=== PATIENT | male | born 1980 | race Caucasian/White ===

== ENCOUNTER 2020-07-10 17:05 | Emergency (ER) | payer OTHER ==
[~2020-07-10] VITALS: Ht 182.9 cm; Wt 94.8 kg
--- NOTE | 2020-07-10 18:26 | Emergency Room Report ---
History of Present Illness General Chief Complaint: Male Urogenital Problems Source: Patient Present Illness HPI 40-year-old male with no past medical history brought in by friend with history of kidney stone onset 2 weeks ago. Patient was diagnosed with kidney stone 2 weeks ago, friend has CT scan report with them revealing evidence of 4 mm right mid ureteral stone. Patient states the pain has not resolved he is currently taking [place] and ibuprofen with no relief in symptoms. He also reports 1 episode of hematuria yesterday. Denies any fevers chills or vomiting. Patient does state he has some mild nausea. Severity, severe. Quality, sharp. Modifying factors, patient states he is taking alcohol approximately mild relief. 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 PULMONARY: No SOB, no cough, no wheezing CARDIAC: No chest pain, No palpitations, no leg swelling GI: No abdominal pain, no vomiting, no diarrhea , no melena or BRBPR : + right flank pain, no dysuria, + hematuria, no frequency, +hx of right ureteral stone MUSCULOSKELETAL: No back pain, no neck pain, no leg pain SKIN: No rash, no itching, no bruising NEUROLOGICAL: No headache, no dizziness, no paresthesia , no focal weakness. 14 point Review of Systems is otherwise negative except per HPI Physical Exam Vital Signs Date Time Temp Pulse Resp B/P (MAP) Pulse Ox O2 Delivery O2 Flow Rate FiO2 07/10/20 17:10 98.4 98 18 118/68 (85) 95 Room Air Other Organ Systems Physical Exam: GENERAL: Awake, alert, nontoxic, in no acute distress EYES: EOMI, conjunctiva without pallor HEAD/EARS/NOSE/THROAT: NCAT, oral mucosa moist, external nose and ear normal in appearance, oropharynx clear, no swelling or exudates. NECK: supple, nontender, no spasm, no JVD, no cervical adenopathy RESPIRATORY: no stridor, effort normal, no retractions, no accessory muscle use, BS clear bilaterally, no wheezes, no rhonchi, no rales, no rub. CARDIOVASCULAR: RRR, normal S1 S2, no murmur, no peripheral edema ABDOMINAL /GI: soft, nondistended, nontender, BS normal, no masses, no guarding, no Mcburneys point tenderness, no rebound, no Murpheys sign : No CVA tenderness MUSCULOSKELETAL: All extremities are non-tender, no swelling, FROM, normal strength, normal sensation, cap refill <2 seconds in all extremities EXTREMITIES: no leg swelling, pulses: 2+ brisk and normal in all distal extremities SKIN: No rash, skin is warm and dry. No cyanosis, no pallor NEUROLOGICAL: awake, alert and appropriate, oriented x3, speech normal, motor and sensation grossly intact PSYCHIATRIC: Normal mood, normal affect Medical Decision Making PA Attestation [Donta] Is my supervising Physician whom patient management has been discussed with. Diagnostic Impression: Primary Impression: Ureteral calculus, right ER Course Differential diagnosis includes septic stone, pyelonephritis, nephrolithiasis, urinary tract infection, sepsis. Patient presents today with a known 4 mm ureteral stone. Friend at bedside showed me a CT scan report revealing evidence that the 4mm stone was in the mid ureter 2 weeks ago. Patient reports he is still experiencing pain and therefore he returned to the emergency room. Currently today CBC reveals no evidence of leukocytosis, CMP reveals creatinine at 1.1. Urinalysis reveals no evidence of infection. Repeat CT scan reveals evidence of 4 mm stone now at distal ureter with mild hydroureteronephrosis and no severe evidence of obstruction. Do not suspect septic stone at this time, patient is not febrile, he is not complaining of any CVA tenderness or vomiting, do not suspect pyelonephritis. I consulted Dr. Schreiber, the urologist, and he recommend that patient is stable for outpatient care and discharge home with observation. Recommended patient follow-up with urologist in 2 weeks and phone number for this doctors office was provided. I discussed these findings at length with patient and friend at bedside and they agree with the plan. Strict ER return precautions given. Patient otherwise stable for outpatient care and discharge home. He was discharged home with a refill of his ibuprofen and [place] prescription for pain management as well as tamsulosin. No need for antibiotics at this time given do not suspect infection. I also discussed this case with my supervising physician Dr. Longo who agrees with the plan. Laboratory Tests Test 07/10/20 18:40 White Blood Count 7.4 K/UL (4.8-10.8) Red Blood Count 4.82 M/UL (4.70-6.10) Hemoglobin 14.3 G/DL (14.2-18.0) Hematocrit 39.6 % (42.0-52.0) L Mean Corpuscular Volume 82 FL (80-99) Mean Corpuscular Hemoglobin 29.6 PG (27.0-31.0) Mean Corpuscular Hemoglobin Concent 36.0 G/DL (32.0-36.0) Red Cell Distribution Width 12.1 % (11.6-14.8) Platelet Count 240 K/UL (150-450) Mean Platelet Volume 6.7 FL (6.5-10.1) Neutrophils (%) (Auto) 60.7 % (45.0-75.0) Lymphocytes (%) (Auto) 27.5 % (20.0-45.0) Monocytes (%) (Auto) 6.8 % (1.0-10.0) Eosinophils (%) (Auto) 3.5 % (0.0-3.0) H Basophils (%) (Auto) 1.5 % (0.0-2.0) Urine Color Yellow Urine Appearance Clear Urine pH 7 (4.5-8.0) Urine Specific [place] 1.010 (1.005-1.035) Urine Protein Negative (NEGATIVE) Urine Glucose (UA) Negative (NEGATIVE) Urine Ketones Negative (NEGATIVE) Urine Blood 1+ (NEGATIVE) H Urine Nitrite Negative (NEGATIVE) Urine Bilirubin Negative (NEGATIVE) Urine Urobilinogen 1 MG/DL (0.0-1.0) H Urine Leukocyte Esterase Negative (NEGATIVE) Urine RBC 2-4 /HPF (0 - 0) H Urine WBC 0-2 /HPF (0 - 0) Urine Squamous Epithelial Cells None /LPF (NONE/OCC) Urine Bacteria Occasional /HPF (NONE) Sodium Level 140 MMOL/L (136-145) Potassium Level 4.1 MMOL/L (3.5-5.1) Chloride Level 108 MMOL/L (98-107) H Carbon Dioxide Level 27 MMOL/L (21-32) Anion Gap 5 mmol/L (5-15) Blood Urea Nitrogen 10 mg/dL (7-18) Creatinine 1.1 MG/DL (0.55-1.30) Estimated Glomerular Filtration Rate > 60 mL/min (>60) Glucose Level 90 MG/DL (74-106) Calcium Level 8.4 MG/DL (8.5-10.1) L Total Bilirubin 1.9 MG/DL (0.2-1.0) H Direct Bilirubin 0.2 MG/DL (0.0-0.3) Aspartate Amino Transferase (AST) 24 U/L (15-37) Alanine Aminotransferase (ALT) 25 U/L (12-78) Alkaline Phosphatase 63 U/L (46-116) Total Protein 6.9 G/DL (6.4-8.2) Albumin 4.0 G/DL (3.4-5.0) Globulin 2.9 g/dL Albumin/Globulin Ratio 1.4 (1.0-2.7) CT/MRI/US Diagnostic Results CT/MRI/US Diagnostic Results : Imaging Test Ordered: CT scan of A&P without contrast Impression IMPRESSION: 4 mmdistal right ureterolith with mild proximal hydroureteronephrosis and periureteral inflammatory change. Radiologist: Irving Cowart DO Electronically Signed: 07/10/20 19:09 Last Vital Signs Date Time Temp Pulse Resp B/P (MAP) Pulse Ox O2 Delivery O2 Flow Rate FiO2 07/10/20 17:10 98.4 98 18 118/68 (85) 95 Room Air Status: improved Disposition: HOME, SELF-CARE Condition: Stable Scripts Hydrocodone Bit/Acetaminophen 5-325* (NORCO 5-325 TABLET*) 1 Each Tablet 1 TAB ORAL Q6H PRN for FOR PAIN, #10 TAB 0 Refills Prov: Lakshmi Schwartz PA-C 07/10/20 Ibuprofen* (MOTRIN*) 600 Mg Tablet 600 MG ORAL Q6H PRN for For Pain, #30 TAB 0 Refills Prov: Lakshmi Schwartz PA-C 07/10/20 Tamsulosin HCl (Flomax) 0.4 Mg Cap.er.24h 0.4 MG ORAL DAILY for BPH for 14 Days, #14 CAP Prov: Lakshmi Schwartz PA-C 07/10/20 Referrals: Lenin [facility] Patient Instructions: Kidney Stones Additional Instructions: Take medications as directed. Follow up with urologist if still experiencing pain in 2 weeks or if you experience any fevers chills nausea or vomiting. You can call Dr. Alford, the urologist at [phone] to see if your insurance covers care at his office, otherwise follow up with your PCP for referral to appropriate urologist. Follow up with a Primary Care Provider in 1-2 days, even if your symptoms have resolved. Return sooner to ED if new symptoms occur, or current symptoms become worse. - Please note that this Emergency Department Report was dictated using [employer] director product management technology software, occasionally this can lead to erroneous entry secondary to interpretation by the dictation equipment. Lakshmi Schwartz PA-C Jul 10, 2020 18:26
[2020-07-10] MEDS ORDERED: Morphine Sulfate 4mg/ml Inj (IV USE ONLY) IVP ONE (18:30)
--- NOTE | 2020-07-10 18:45 | NUR ---
ED Nurse Note:pt. came with right flank pain, possible kidney stone, blood urine sentt o labs ,pt. had CT scan done
--- NOTE | 2020-07-10 19:10 | Diagnostic Imaging Report ---
EXAM: CT Abdomen and Pelvis Without Intravenous Contrast CLINICAL HISTORY: STONES TECHNIQUE: Axial computed tomography images of the abdomen and pelvis without intravenous contrast. CTDI is 8.10 mGy and DLP is 505.50 mGy-cm. One or more of the following dose reduction techniques were used: automated exposure control, adjustment of the mA and/or kV according to patient size, use of iterative reconstruction technique. COMPARISON: No relevant prior studies available. FINDINGS: Lung bases: Unremarkable. No mass. No consolidation. ABDOMEN: Liver: A few incidental calcifications of the liver, likely granulomatous process. Gallbladder and bile ducts: Unremarkable. No calcified stones. No ductal dilation. Pancreas: Unremarkable. No ductal dilation. Spleen: Unremarkable. No splenomegaly. Adrenals: Unremarkable. No mass. Kidneys and ureters: 4 mm distal right ureterolith just proximal to the ureterovesicular junction. There is mild proximal hydroureteronephrosis with periureteral Stomach and bowel: Unremarkable. No obstruction. No mucosal thickening. PELVIS: Appendix: Normal appendix. Inflammatory change. Bladder: Unremarkable. No stones. Reproductive: Unremarkable as visualized. ABDOMEN and PELVIS: Intraperitoneal space: Unremarkable. No free air. No significant fluid collection. Bones/joints: No acute fracture. No dislocation. Soft tissues: Unremarkable. Vasculature: Unremarkable. No abdominal aortic aneurysm. Lymph nodes: Unremarkable. No enlarged lymph nodes. IMPRESSION: 4 mm distal right ureterolith with mild proximal hydroureteronephrosis and periureteral inflammatory change.
[2020-07-10 19:15] VITALS: BP 118/68
--- NOTE | 2020-07-10 19:15 | NUR ---
ED Nurse Note: Recieved report from am nurse to resume care, pt in bed awake, alert and oriented x 4, has patent saline lock in left arm, pt here for pain from stones, pt was recently medicated and states pain is at 3/10 and meds effective, will resume care as ordered and continue to closely monitor.
[2020-07-10 19:28] LABS: BASOPHILS % (AUTO) 1.5 % (0.0-2.0); EOSINOPHILS % (AUTO) 3.5 % (0.0-3.0); HEMATOCRIT 39.6 % (42.0-52.0); HEMOGLOBIN 14.3 G/DL (14.2-18.0); LYMPHOCYTES % (AUTO) 27.5 % (20.0-45.0); MEAN CORPUSCULAR VOLUME 82 FL (80-99); MONOCYTES % (AUTO) 6.8 % (1.0-10.0); NEUTROPHILS % (AUTO) 60.7 % (45.0-75.0); PLATELET COUNT 240 K/UL (150-450); RED BLOOD COUNT 4.82 M/UL (4.70-6.10); RED CELL DISTRIBUTION WIDTH 12.1 % (11.6-14.8); WHITE BLOOD COUNT 7.4 K/UL (4.8-10.8)
[2020-07-10] MEDS ORDERED: Ketorolac 30mg Inj IV ONE (19:30)
[2020-07-10 19:31] LABS: APPEARANCE,URINE CLEAR; BILIRUBIN, URINE NEGATIVE (NEGATIVE); GLUCOSE, URINE (UA) NEGATIVE (NEGATIVE); KETONES,URINE NEGATIVE (NEGATIVE); LEUKOCYTE ESTERASE ,URINE NEGATIVE (NEGATIVE); NITRITE,URINE NEGATIVE (NEGATIVE); PH,URINE 7 (4.5-8.0); PROTEIN,URINE NEGATIVE (NEGATIVE); UROBILINOGEN,URINE 1 MG/DL (0.0-1.0)
[2020-07-10 19:33] LABS: ANION GAP 5 mmol/L (5-15); BLOOD UREA NITROGEN 10 mg/dL (7-18); CALCIUM 8.4 MG/DL (8.5-10.1); CARBON DIOXIDE 27 MMOL/L (21-32); CHLORIDE 108 MMOL/L (98-107); CREATININE 1.1 MG/DL (0.55-1.30); POTASSIUM 4.1 MMOL/L (3.5-5.1); SODIUM 140 MMOL/L (136-145)
[2020-07-10 19:35] LABS: COLOR,URINE YELLOW
[2020-07-10] MEDS ORDERED: Tamsulosin 0.4mg cap ORAL ONE (19:35)
[2020-07-10 19:43] LABS: ALANINE AMINOTRANSFERASE 25 U/L (12-78); ALBUMIN/GLOBULIN RATIO 1.4 (1.0-2.7); ALKALINE PHOSPHATASE 63 U/L (46-116); ASPARTATE AMINO TRANSFERASE 24 U/L (15-37); BILIRUBIN,TOTAL 1.9 MG/DL (0.2-1.0)
[2020-07-10 20:02] LABS: BILIRUBIN,DIRECT 0.2 MG/DL (0.0-0.3)
[2020-07-10] MEDS ORDERED: FLOMAX0.4 MG ORAL (20:35)
[2020-07-10] MEDS ORDERED: NORCO 5-325 TA1 EAC1 ORAL (20:35)
[2020-07-10] MEDS ORDERED: IBUPROFEN600 M1 ORAL (20:35)
[2020-07-10 20:45] VITALS: BP 123/71
--- NOTE | 2020-07-10 20:45 | NUR ---
ED Nurse Note:ER DISCHARGE NOTE: Patient is cleared to be discharged per ERMD, pt is aox4, on room air, with stable vital signs. pt was given dc and prescription instructions, pt was able to verbalize understanding, pt id band and iv site removed without complications. pt is able to ambulate with steady gait. pt took all belongings.
[2020-07-10] MEDS ORDERED: Tamsulosin 0.4mg cap ORAL SCH (21:00)
== END 2020-07-10 21:00 | disposition home or self-care (01) ==
LOC: EMR 19:00
DX: N13.2 Hydronephrosis with renal and ureteral calculous obstruction (principal)
CPT/HCPCS: 36415; 74176; 80053; 81003; 82248; 85025; 96361; 96374; 96375; 99284; J1885; J2270; J2405; J7030